=== PATIENT | male | born 1980 | race Two or more races ===

== ENCOUNTER 2021-02-02 22:52 | Emergency (ER) | payer OTHER ==
[~2021-02-02] VITALS: Ht 177.8 cm; Wt 97.5 kg
[2021-02-02 23:08] VITALS: BP 139/83
== END 2021-02-02 23:28 ==
LOC: ER 22:52
DX: R07.89 Other chest pain (principal); F11.13 Opioid abuse with withdrawal; F17.210 Nicotine dependence, cigarettes, uncomplicated; I10 Essential (primary) hypertension
CPT/HCPCS: 93005

== ENCOUNTER 2021-07-04 22:32 | Emergency (ER) | payer OTHER ==
[~2021-07-04] VITALS: Ht 180.3 cm; Wt 83.9 kg
[2021-07-05 04:38] LABS: Basophils # (auto) 0 10 ^3/uL (0-0.2); Basophils % (auto) 0.3 % (0.0-2.0); Eosinophils # (auto) 0.1 10 ^3/uL (0-0.8); Eosinophils % (auto) 0.9 % (0.0-7.0); Hemoglobin 14.3 g/dL (13.5-17.5); Lymphocytes # (auto) 1.4 10 ^3/uL (0.4-5.4); Lymphocytes % (auto) 12.6 % (10.0-50.0); Mean Corpuscular Hemoglobin 26.8 pg (28.0-32.0); Mean Corpuscular Hgb Conc. 32.5 g/dL (32.0-36.0); Mean Corpuscular Volume 82.6 fL (80.0-100.0); Monocytes # (auto) 0.8 10 ^3/uL (0-1.3); Monocytes % (auto) 7.5 % (0.0-12.0); Neutrophils # (auto) 8.4 10 ^3/uL (1.6-8.6); Neutrophils % (auto) 78.7 % (37.0-80.0); Red Blood Cells 5.33 10^6/uL (4.5-5.90); White Blood Cell 10.7 10^3/uL (4.4-10.8)
[2021-07-05 05:03] LABS: BUN/Creatinine Ratio 22.8; Calcium 8.6 mg/dL (8.5-10.1); Potassium 4.5 mmol/L (3.5-5.1); Salicylate 2.1 mg/dL (2.8-20.0)
[2021-07-05 05:06] LABS: Bilirubin, Total 0.2 mg/dL (0.2-1.0); Total Protein 7.3 g/dL (6.4-8.2)
[2021-07-05 05:08] LABS: Acetaminophen < 2.0 ug/mL (10-30)
[2021-07-05 06:52] VITALS: BP 123/80
== END 2021-07-05 06:57 | disposition home or self-care (01) ==
LOC: EDBD 22:32 → ER 22:39
DX: T40.2X1A Poisoning by other opioids, accidental (unintentional), initial encounter (principal); F17.210 Nicotine dependence, cigarettes, uncomplicated; Y92.89 Other specified places as the place of occurrence of the external cause
CPT/HCPCS: 36415; 80053; 80320; 80329; 85025

== ENCOUNTER 2021-07-26 22:06 | Emergency (ER) | payer OTHER ==
[~2021-07-26] VITALS: Ht 182.9 cm; Wt 90.7 kg
[2021-07-27 00:12] LABS: Basophils # (auto) 0 10 ^3/uL (0-0.2); Basophils % (auto) 0.3 % (0.0-2.0); Eosinophils # (auto) 0 10 ^3/uL (0-0.8); Eosinophils % (auto) 0.3 % (0.0-7.0); Hematocrit 45.1 % (41.0-53.0); Hemoglobin 15.1 g/dL (13.5-17.5); Lymphocytes # (auto) 0.7 10 ^3/uL (0.4-5.4); Lymphocytes % (auto) 4.6 % (10.0-50.0); Mean Corpuscular Hemoglobin 27.5 pg (28.0-32.0); Mean Corpuscular Hgb Conc. 33.5 g/dL (32.0-36.0); Mean Corpuscular Volume 82.2 fL (80.0-100.0); Monocytes # (auto) 1.1 10 ^3/uL (0-1.3); Monocytes % (auto) 7.2 % (0.0-12.0); Neutrophils # (auto) 13.8 10 ^3/uL (1.6-8.6); Neutrophils % (auto) 87.6 % (37.0-80.0); Red Blood Cells 5.49 10^6/uL (4.5-5.90); Red Cell Distribution Width 15.5 % (11.8-14.3); White Blood Cell 15.8 10^3/uL (4.4-10.8)
[2021-07-27 00:23] LABS: Alanine Aminotransferase 24 U/L (16-61); Albumin 4.3 g/dL (3.4-5.0); Anion Gap 3 (5-15); Aspartate Aminotransferase 14 U/L (15-37); BUN/Creatinine Ratio 17.2; Blood Alcohol < 3.0 mg/dL (0-5); Blood Urea Nitrogen 17 mg/dL (7-18); Calcium 9.1 mg/dL (8.5-10.1); Carbon Dioxide 29 mmol/L (21-32); Chloride 108 mmol/L (98-107); GFR African American 108 mL/min; GFR Non-African American 89 mL/min; Glucose 124 mg/dL (74-106); Potassium 5.2 mmol/L (3.5-5.1); Sodium 140 mmol/L (136-145)
[2021-07-27 00:25] LABS: Alkaline Phosphatase 67 U/L (45-117); Bilirubin, Total 0.3 mg/dL (0.2-1.0); Total Protein 7.8 g/dL (6.4-8.2)
[2021-07-27] MEDS ORDERED: SODIUM CHLORIDE 0.9% 1,000 ML IV ONE (01:45)
[2021-07-27 03:33] LABS: BUN/Creatinine Ratio 18.5; Calcium 8.7 mg/dL (8.5-10.1); Potassium 4.8 mmol/L (3.5-5.1)
[2021-07-27 03:58] VITALS: BP 111/64
== END 2021-07-27 06:19 | disposition home or self-care (01) ==
LOC: EDUNIT# 22:06 → EDBD 22:06 → ER 22:06
DX: T40.411A Poisoning by fentanyl or fentanyl analogs, accidental (unintentional), initial encounter (principal); F32.9 Major depressive disorder, single episode, unspecified; R45.851 Suicidal ideations; Y92.89 Other specified places as the place of occurrence of the external cause; F17.210 Nicotine dependence, cigarettes, uncomplicated
CPT/HCPCS: 36415; 73610; 80048; 80053; 80320; 84443; 85025; 93005; 96360; 99285; J7030